=== PATIENT | female | born 1950 | race Caucasian/White ===

== ENCOUNTER 2024-01-14 07:13 | Emergency (ER) | payer OTHER, SELFPAY ==
--- NOTE | ~2024-01-14 | XR_ITS ---
EXAMINATION: XR HIP, RIGHT CLINICAL INFORMATION: Pain without history of trauma COMPARISON: None available. TECHNIQUE: Two views of the right hip. FINDINGS: No definite fracture. Alignment is anatomic. Hip joint space is maintained. Soft tissues are unremarkable. If hip pain is persistent a CT or MRI may be useful to look for occult nondisplaced fracture. XR/XR hip RT w [id number] IMPRESSION: No definite fracture. If hip pain is persistent a CT or MRI may be useful to look for occult nondisplaced fracture.
[2024-01-14 07:17] VITALS: BP 141/68; PULSE 72; RESP 18; TEMP 36.4; O2SAT 97; BMI 29.4
[2024-01-14 08:17] LABS: Influenza A PCR NEGATIVE (Negative); Influenza B PCR NEGATIVE (Negative); Resp Syncy Virus RNA Qual PCR NEGATIVE (Negative); SARS COV2 PCR INHOUSE NEGATIVE (Negative)
--- NOTE | 2024-01-14 08:36 | ED.LOWEXIN ---
HPI - Extremity Injury (Lower) General Chief Complaint: Extremity Injury, Lower Stated Complaint: Hip pain R side Time Seen by Provider: 01/14/24 08:30 Source: patient Mode of arrival: ambulatory Limitations: no limitations History of Present Illness ED Provider: Dr. Ye Vazquez HPI Narrative: 73-year-old female presents emergency room with 3 weeks of right hip groin and upper leg pain. She does have history of bilateral knee replacements but has not no new falls or image trauma she has not take any pain medications denies any fevers chills cough shortness of breath she is normal range of motion normal pulses MD complaint: other Related Data Previous Rx's ?Medication ?Instructions ?Recorded acetaminophen 325 mg tablet 325 mg PO QID PRN pain #90 tabs 01/14/24 (Tylenol) cyclobenzaprine 5 mg tablet 5 mg PO BEDTIME PRN muscle spasm 01/14/24 #20 tabs prednisone 20 mg tablet 60 mg (3 x 20 mg) PO DAILY Asthma 01/14/24 5 days #15 tabs Allergies Allergy/AdvReac Type Severity Reaction Status Date / Time No Known Allergies Allergy Verified 01/14/24 07:22 Review of Systems Review of Systems: Review of systems: General: Patient denies any fever chills recent illness or falls Musculoskeletal: Denies back pain or body aches or other injuries HEENT: denies headache, runny nose, ear pain Respiratory: denies shortness of breath, cough Cardiovascular: no chest pain or palpitations : denies dysuria, frequency Abdomen: no nausea vomiting denies abdominal pain Extremities: Right hip versus groin pain Skin: no diaphoresis Yes all other systems are reviewed and are negative PMFSH Social History Social History Advance Directives: No Advance Directives Information Provided: Yes Do you have a plan to hurt others: No Plan Physical Exam Vital Signs: Vital Signs: Last Vital Signs Temp 97.6 F 01/14/24 07:17 Pulse 72 01/14/24 07:17 Resp 18 01/14/24 07:17 BP 141/68 H 01/14/24 07:17 Pulse Ox 97 01/14/24 07:17 O2 Del Method Room Air 01/14/24 07:17 BMI result Body Mass Index 29.4 General: Well-appearing well-nourished in no signs of distress HEENT: Normocephalic atraumatic Neck: No signs of JVD, no masses no tenderness or lymphadenopathy Cardiovascular: Regular rate and rhythm Respiratory: Clear to auscultation bilaterally Abdomen: Soft nontender no masses Extremities: Normal pedal pulses no signs of edema normal peripheral pulses Skin: Dry warm no rashes Back: No tenderness full ROM negative straight leg test normal reflexes normal strength Medical Decision Making Medical Decision Making [facility] Narrative: This appears to be acute on chronic pain patient has a normal exam normal x-rays she has no fever or systemic symptoms with normal vitals that he is going to be septic joint or needs any workup with that her labs Differential Diagnosis Differential Diagnoses: The differential diagnosis associated with the presentation includes Hip strain going strain fracture dislocation Lab Data Labs: Lab Results 01/14/24 Range/Units 07:35 Influenza Type A (PCR) NEGATIVE (Negative) Influenza Type B (PCR) NEGATIVE (Negative) RSV RNA Qual (PCR) NEGATIVE (Negative) SARS-CoV-2 RNA (RT-PCR) NEGATIVE (Negative) Independent Interpretation I performed an independent interpretation of an: Plain X-Ray Radiology Impression Discussion of test interpretation with radiology: I have reviewed the radiologist's reading. Discharge Plan Discharge Clinical Impression: Osteoarthritis of right hip Patient Disposition: Home, Self-Care Instructions: Osteoarthritis (DC) Additional Instructions: You were seen today in the emergency department for right hip pain. He had x-rays done which not show any acute fracture do have osteoarthritis of the hip. I do think he would benefit from following up with Orthopedics we did give you a referral. I also gave you Tylenol and Toradol for pain recommend taking ibuprofen and Tylenol at home and following up with Dr. Small started you on a muscle relaxant help you sleep at night as well as prednisone for the next 2 days. Prescriptions: New acetaminophen [Tylenol] 325 mg tablet 325 mg PO QID PRN (Reason: pain) Qty: 90 0RF prednisone 20 mg tablet 60 mg PO DAILY 5 Days Qty: 15 0RF cyclobenzaprine 5 mg tablet 5 mg PO BEDTIME PRN (Reason: muscle spasm) Qty: 20 0RF Print Language: Bahamian
[2024-01-14] MEDS: Acetaminophen 325 MG TABLET 650 MG PO (09:25)
[2024-01-14] MEDS: Ketorolac Tromethamine 30 MG/ML VIAL 15 MG IM (09:26)
[2024-01-14] MEDS: predniSONE 20 MG TABLET 60 MG PO (09:26)
[2024-01-14 09:36] VITALS: BP 141/68; PULSE 72; RESP 18; TEMP 36.4; O2SAT 97
== END 2024-01-14 09:37 | disposition home or self-care (01) ==
PROVIDERS: Emergency Provider Student in an Organized Health Care Education/Training Program
DX: M16.11 Unilateral primary osteoarthritis, right hip (principal); Z03.818 Encounter for observation for suspected exposure to other biological agents ruled out; Z79.899 Other long term (current) drug therapy
CPT/HCPCS: 0241U; 73502; 96372; 99283; 99284; J1885